=== PATIENT | male | born 1955 | race Caucasian/White ===

== ENCOUNTER → 2019-04-13 | Outpatient (CLI) | payer BC ==
[~2019-04-13] MED LIST: GADOTERATE 10 MMOL/20 ML SYR ONE
== END | disposition home or self-care (01) ==
LOC: CFH 11:01
PROVIDERS: ATTEND Nurse Practitioner Primary Care
DX: M51.36 Other intervertebral disc degeneration, lumbar region (principal); M48.061 Spinal stenosis, lumbar region without neurogenic claudication; E55.9 Vitamin D deficiency, unspecified; E78.2 Mixed hyperlipidemia; I10 Essential (primary) hypertension; G20 Parkinson's disease; R53.83 Other fatigue
CPT/HCPCS: 72100; 72158; A9575

== ENCOUNTER 2019-11-16 12:24 | Outpatient (CLI) | payer BC ==
[2019-11-16] MEDS ORDERED: PRAS10TA4 PO (13:20)
[2019-11-16] MEDS ORDERED: CARB1CAP PO (13:20)
[2019-11-16] MEDS ORDERED: CHOL500045 PO (13:20)
[2019-11-16] MEDS ORDERED: UBID100C41 PO (13:20)
[2019-11-16] MEDS ORDERED: DIAZ5TAB4 PO (13:20)
[2019-11-16] MEDS ORDERED: ERGO500017 PO (13:20)
[2019-11-16] MEDS ORDERED: FOLI-17 PO (13:20)
[2019-11-16] MEDS ORDERED: APIX5TAB PO (13:20)
[2019-11-16] MEDS ORDERED: vitamin k2 PO (13:20)
[2019-11-16] MEDS ORDERED: AMOX-291 PO (13:20)
[2019-11-16 14:04] LABS: BASOPHILS # (AUTO) 0.05 x10^3/uL (0-0.1); BASOPHILS % (AUTO) 1 % (0-1); EOSINOPHILS # (AUTO) 0.14 x10^3/uL (0-0.4); EOSINOPHILS % (AUTO) 2 % (1-7); LYMPHOCYTES # (AUTO) 1.74 x10^3/uL (1-3.4); LYMPHOCYTES % (AUTO) 30 % (22-44); MD NO; MEAN CORPUSCULAR HEMOGLOBIN 31.3 pg (27.5-34.5); MEAN CORPUSCULAR HGB CONC 33.3 g/dL (33.2-36.2); MEAN CORPUSCULAR VOLUME 94.1 fL (81-97); MEAN PLATELET VOLUME 7.5 fL (7.4-10.4); MONOCYTES # (AUTO) 0.49 x10^3/uL (0.2-0.8); MONOCYTES % (AUTO) 8 % (2-9); NEUTROPHILS # (AUTO) 3.47 x10^3/uL (1.8-6.8); NEUTROPHILS % (AUTO) 59 % (42-75); PLATELET COUNT 359 x10^3/uL (130-400); RED BLOOD COUNT 4.21 x10^6/uL (4.38-5.82); RED CELL DISTRIBUTION WIDTH 14.2 % (9.4-14.8)
[2019-11-16 14:04] LABS: MICROSCOPIC NOT IND
[2019-11-16 14:13] LABS: INTERNATIONAL NORMALIZED RATIO 0.97 (0.93-1.1); PROTHROMBIN TIME 10.3 Seconds (9.6-11.5)
[2019-11-16 14:15] LABS: ANION GAP 7 mmol/L (5-15); CALCIUM 8.6 mg/dL (8.5-10.1); CHLORIDE 107 mmol/L (98-107); CREATININE 1.05 mg/dL (0.7-1.3)
== END 2019-11-16 23:59 | disposition home or self-care (01) ==
LOC: STAR 12:24
PROVIDERS: ATTEND Neurological Surgery
DX: Z01.818 Encounter for other preprocedural examination (principal); M51.36 Other intervertebral disc degeneration, lumbar region; M47.814 Spondylosis without myelopathy or radiculopathy, thoracic region
CPT/HCPCS: 36415; 71046; 80048; 81003; 85025; 85610; 85730; 93005

== ENCOUNTER → 2019-11-16 | Day surgery (SDC) | payer BC ==
[~2019-11-16] VITALS: Ht 193 cm; Wt 93.1 kg
[~2019-11-16] MED LIST changes: +AMOX-291 PO; +APIX5TAB PO; +CARB1CAP PO; +CHOL500045 PO; +DIAZ5TAB4 PO; +ERGO500017 PO; +FOLI-17 PO; -GADOTERATE 10 MMOL/20 ML SYR ONE; +PRAS10TA4 PO; +UBID100C41 PO; +vitamin k2 PO
== END | disposition home or self-care (01) ==
LOC: OR 12:42
PROVIDERS: ATTEND Neurological Surgery
DX: Z02.9 Encounter for administrative examinations, unspecified (principal)

== ENCOUNTER 2019-12-06 08:57 | Inpatient (IN) | payer BC ==
[~2019-12-06] VITALS: Ht 195.6 cm; Wt 97.0 kg
[2019-12-06] MEDS ORDERED: FENTANYL PF 250 MCG/5ML ONE ×2 (09:31→12:50)
[2019-12-06] MEDS ORDERED: MIDAZOLAM 1 MG/ML, 2ML ONE (09:31)
[2019-12-06] MEDS ORDERED: PROPOFOL 100 ML ONE (09:35)
[2019-12-06] MEDS ORDERED: ROCURONIUM 10MG/ML,5ML ONE (09:37)
[2019-12-06] MEDS ORDERED: GLYCOPYRROLATE 0.2MG/1ML, 5ML ONE (09:37)
[2019-12-06] MEDS ORDERED: CEFAZOLIN 1,000 MG ONE (09:37)
[2019-12-06] MEDS ORDERED: PROPOFOL 10 MG/ML, 20ML ONE (09:37)
[2019-12-06] MEDS ORDERED: NEOSTIGMINE 1 MG/ML, 10ML ONE (09:37)
[2019-12-06] MEDS ORDERED: CHLORHEXIDINE 15 ML UDC ONE (10:09)
[2019-12-06] MEDS ORDERED: FENTANYL PF 100 MCG/2ML ONE ×3 (13:59→15:56)
[2019-12-06] MEDS ORDERED: PROPOFOL 50 ML ONE (14:18)
[2019-12-06] MEDS ORDERED: ACETAMINOPHEN 650 MG/20.3 ML UDC ONE (15:52)
[2019-12-06] MEDS ORDERED: OXYcodone 5 MG/5 ML ORAL.SOL UDC ONE (15:52)
[2019-12-06] MEDS ORDERED: RYTARY PO SCH (18:00)
[2019-12-06] MEDS ORDERED: PLEASE ENTER HEIGHT AND WEIGHT MC SCH ×2 (18:00→18:30)
[2019-12-06 19:15] VITALS: BP 131/85
[2019-12-06] MEDS ORDERED: HYDROmorphone PCA 30 MG/30 ML IV PRN (19:30)
[2019-12-06] MEDS ORDERED: ONDANSETRON 2MG/ML, 2ML IV PRN (19:30)
[2019-12-06] MEDS ORDERED: MAGNESIUM HYDROXIDE 8%, 30ML UDC PO PRN (19:30)
[2019-12-06] MEDS ORDERED: BISACODYL 10 MG SUPP PR PRN (19:30)
[2019-12-06] MEDS ORDERED: DIPHENHYDRAMINE 50 MG/ML, 1ML IVPush PRN (19:30)
[2019-12-06] MEDS ORDERED: SODIUM CHLORIDE 0.9% 1,000ML IV PRN (19:30)
[2019-12-06] MEDS ORDERED: HYDROcodone/APAP 5/325 TABLET PO PRN (19:30)
[2019-12-06] MEDS ORDERED: morphine SULFATE 10 MG/ML, 1ML IV PRN (19:30)
[2019-12-06] MEDS ORDERED: PROMETHAZINE 25 MG/ML, 1ML IM PRN (19:30)
[2019-12-06] MEDS ORDERED: DIPHENHYDRAMINE 25 MG CAPSULE PO PRN (20:00)
[2019-12-06] MEDS: NS + 20MEQ KCL 1,000 ML IV SCH (20:08)
[2019-12-06] MEDS: DIAZEPAM 5 MG TABLET PO PRN (20:08)
[2019-12-06] MEDS: CEFAZOLIN PMX 1GM/50ML 50 ML IVPB SCH (20:08)
[2019-12-06] MEDS: OXYcodone IR 5MG TABLET PO PRN (20:10)
[2019-12-07 01:18] VITALS: BP 134/76
[2019-12-07] MEDS: OXYcodone IR 5MG TABLET PO PRN ×2 (02:07→09:22)
[2019-12-07 03:41] VITALS: BP 130/79
[2019-12-07] MEDS: CEFAZOLIN PMX 1GM/50ML 50 ML IVPB SCH (05:09)
[2019-12-07] MEDS: NS + 20MEQ KCL 1,000 ML IV SCH ×2 (05:30→15:03)
[2019-12-07 05:37] LABS: BASOPHILS # (AUTO) 0.03 x10^3/uL (0-0.1); BASOPHILS % (AUTO) 0 % (0-1); EOSINOPHILS # (AUTO) 0.14 x10^3/uL (0-0.4); EOSINOPHILS % (AUTO) 2 % (1-7); LYMPHOCYTES # (AUTO) 1.07 x10^3/uL (1-3.4); LYMPHOCYTES % (AUTO) 16 % (22-44); MD NO; MEAN CORPUSCULAR HEMOGLOBIN 30.8 pg (27.5-34.5); MEAN CORPUSCULAR HGB CONC 33.5 g/dL (33.2-36.2); MONOCYTES # (AUTO) 0.57 x10^3/uL (0.2-0.8); MONOCYTES % (AUTO) 9 % (2-9); NEUTROPHILS # (AUTO) 4.73 x10^3/uL (1.8-6.8); NEUTROPHILS % (AUTO) 72 % (42-75); PLATELET COUNT 227 x10^3/uL (130-400); RED BLOOD COUNT 3.45 x10^6/uL (4.38-5.82); RED CELL DISTRIBUTION WIDTH 14.2 % (9.4-14.8)
[2019-12-07 05:46] LABS: ANION GAP 7 mmol/L (5-15); CALCIUM 7.7 mg/dL (8.5-10.1); CHLORIDE 106 mmol/L (98-107)
[2019-12-07 05:47] LABS: CREATININE 0.87 mg/dL (0.7-1.3)
[2019-12-07] MEDS: RYTARY PO SCH ×3 (06:00→17:20)
[2019-12-07 07:58] VITALS: BP 115/71
[2019-12-07] MEDS: SENNA/DOCUSATE TABLET PO SCH (09:21)
[2019-12-07] MEDS: CHOLECALCIFEROL 5,000u TAB PO SCH (09:22)
[2019-12-07] MEDS: DIAZEPAM 5 MG TABLET PO PRN (10:20)
[2019-12-07] MEDS: HYDROcodone/APAP 10/325 MG TABLET PO PRN ×3 (13:12→21:16)
[2019-12-07 13:27] VITALS: BP 113/71
[2019-12-07 20:15] VITALS: BP 110/68
[2019-12-08] MEDS: NS + 20MEQ KCL 1,000 ML IV SCH ×3 (01:30→19:49)
[2019-12-08] MEDS: HYDROcodone/APAP 10/325 MG TABLET PO PRN ×2 (02:14→09:18)
[2019-12-08 02:49] VITALS: BP 118/75
[2019-12-08] MEDS: RYTARY PO SCH ×3 (06:13→17:49)
[2019-12-08 06:25] LABS: HCT (SEDRATE) 35.8 % (39.2-51.8)
[2019-12-08 06:28] LABS: ALBUMIN 2.9 g/dL (3.4-5.0); ANION GAP 6 mmol/L (5-15); CALCIUM 8.3 mg/dL (8.5-10.1); CHLORIDE 104 mmol/L (98-107)
[2019-12-08 06:39] LABS: ALANINE AMINOTRANSFERASE 11 U/L (12-78); ALKALINE PHOSPHATASE 89 U/L (45-117); BILIRUBIN,TOTAL 1.1 mg/dL (0.2-1.0); CREATININE 0.89 mg/dL (0.7-1.3); TOTAL PROTEIN 6.4 g/dL (6.4-8.2)
[2019-12-08 07:34] VITALS: BP 107/69
[2019-12-08] MEDS: CHOLECALCIFEROL 5,000u TAB PO SCH (09:18)
[2019-12-08] MEDS: TIZANIDINE 4MG TABLET PO PRN ×2 (09:18→17:49)
[2019-12-08] MEDS: SENNA/DOCUSATE TABLET PO SCH (09:18)
[2019-12-08 14:15] VITALS: BP 147/79
[2019-12-08] MEDS: OXYcodone IR 5MG TABLET PO PRN (17:49)
[2019-12-08 20:20] VITALS: BP 131/74
[2019-12-09 00:59] VITALS: BP 112/69
[2019-12-09] MEDS: OXYcodone IR 5MG TABLET PO PRN ×2 (02:27→09:30)
[2019-12-09] MEDS: RYTARY PO SCH (05:32)
[2019-12-09] MEDS: NS + 20MEQ KCL 1,000 ML IV SCH (05:51)
[2019-12-09 07:43] VITALS: BP 118/70
[2019-12-09] MEDS: SENNA/DOCUSATE TABLET PO SCH (09:30)
[2019-12-09] MEDS: CHOLECALCIFEROL 5,000u TAB PO SCH (09:30)
[2019-12-09] MEDS ORDERED: TIZA4TAB2 PO (10:15)
[2019-12-09] MEDS ORDERED: ERGOCALCIFEROL 50,000 UNIT CAPSULE PO SCH (18:00)
== END 2019-12-09 11:09 | disposition home or self-care (01) | DRG 95 ==
LOC: OUT 08:57 → EDSTATUS 10:30 → 4NE 17:30 → OUT 18:34 → 4NE 18:35 → DCLOUNGE 12-09 10:57
PROVIDERS: ADMIT Neurological Surgery; ATTEND Neurological Surgery
DX: G06.1 Intraspinal abscess and granuloma (principal); M46.26 Osteomyelitis of vertebra, lumbar region; M46.46 Discitis, unspecified, lumbar region; B96.4 Proteus (mirabilis) (morganii) as the cause of diseases classified elsewhere; E78.5 Hyperlipidemia, unspecified; M10.9 Gout, unspecified; G20 Parkinson's disease; E78.00 Pure hypercholesterolemia, unspecified; Z88.6 Allergy status to analgesic agent; Z88.8 Allergy status to other drugs, medicaments and biological substances; Z88.1 Allergy status to other antibiotic agents; Z85.828 Personal history of other malignant neoplasm of skin; Z86.711 Personal history of pulmonary embolism; Z87.891 Personal history of nicotine dependence; Z90.49 Acquired absence of other specified parts of digestive tract; Z72.89 Other problems related to lifestyle
CPT/HCPCS: 36415; 72100; 72131; 80048; 80053; 84550; 85025; 85610; 85651; 85730; 86140; 87070; 87075; 87176; 87205; G0378; J0690; J1170; J2250; J2704; J2710; J3010; J3370; J3480; J2270; J2930; J7120